=== PATIENT | male | born 1955 ===

== ENCOUNTER 2018-07-03 06:07 | Inpatient (IN) | payer MEDICARE ==
[2018-06-18 11:09] VITALS: BMI 27.2
[2018-07-03 07:08] LABS: BASO # 0.1 K/uL (0.0-0.2); BASO % 0.7 % (0.0-2.0); EOS # 0.2 K/uL (0.0-0.7); EOS % 3.1 % (0.0-4.0); LYMPH # 0.9 K/uL (1.0-4.3); LYMPH % 13.1 % (20.0-40.0); MEAN CELL VOLUME 99.3 fl (80.0-94.0); MEAN CORPUSCULAR HEMOGLOBIN 33.4 pg (27.0-31.0); MEAN CORPUSCULAR HGB CONC 33.6 g/dL (33.0-37.0); MEAN PLATELET VOLUME 8.6 fl (7.2-11.7); MONO # 0.6 K/uL (0.0-0.8); MONO % 8.7 % (0.0-10.0); NEUT # 5.3 K/uL (1.8-7.0); NEUT % 74.4 % (50.0-75.0); NRBC % 0.1 % (0.0-0.0); RBC 3.91 Mil/uL (4.40-5.90); RED CELL DISTRIBUTION WIDTH 12.5 % (11.5-14.5); WHITE BLOOD COUNT 7.2 K/uL (4.8-10.8)
[2018-07-03] MEDS ORDERED: Lactated Ringer's 1,000 ML IV ONE ×2 (07:21→15:45)
[2018-07-03 07:25] LABS: INR 1.1
[2018-07-03 07:27] LABS: PARTIAL THROMBOPLASTIN TIME 32.7 Seconds (25.6-37.1)
--- NOTE | 2018-07-03 07:36 | CP.PCM.HP ---
History of Present Illness - History of Present Illness History of Present Illness: Orthopedic consult/H&P: Dr. Shipley Patient is a 63 y/o male who presents for elective L MIGUELITO. The patient has had chronic left hip pain for the past 3 years which has been resistant to conservative means, with PT and oral medications. The pain has hindered his usual activities such as walking, tieing his shoes, and getting out of seated position. He uses a cane at times to aid in ambulation secondary to his pain. He denies any radiation of pain/numbness/tingling to LE. He also denies CP/SOB/N/V/D/fever/dysuria/melena. He has had history of cardiac stent in 2010. Present on Admission - Present on Admission Any Indicators Present on Admission: No Review of Systems - Review of Systems All systems: reviewed and no additional remarkable complaints except Review of Systems: as per HPI Past Patient History - Infectious Disease Hx of Infectious Diseases: None - Tetanus Immunizations Tetanus Immunization: Unknown - Past Medical History & Family History Past Medical History?: Yes Past Family History: Reviewed and not pertinent - Past Social History Smoking Status: Never Smoked Alcohol: None Drugs: Denies - CARDIAC Hx Cardiac Disorders: Yes Hx Hypercholesterolemia: Yes Hx Hypertension: Yes - PULMONARY Hx Respiratory Disorders: No Hx Asthma: Yes (as a child) - NEUROLOGICAL Hx Neurological Disorder: No - HEENT Hx HEENT Problems: No Hx Glaucoma: Yes (no meds) - RENAL Hx Chronic Kidney Disease: No - ENDOCRINE/METABOLIC Hx Endocrine Disorders: No - HEMATOLOGICAL/ONCOLOGICAL Hx Blood Disorders: No Hx Blood Transfusions: No - INTEGUMENTARY Hx Dermatological Problems: No - MUSCULOSKELETAL/RHEUMATOLOGICAL Hx Musculoskeletal Disorders: Yes Hx Arthritis: (wrist) Hx Back Pain: Yes Hx Fractures: Yes (BILAT ANKLES) Hx Osteoarthritis: Yes Hx Rheumatoid Arthritis: Yes - GASTROINTESTINAL Hx Gastrointestinal Disorders: No - GENITOURINARY/GYNECOLOGICAL Hx Genitourinary Disorders: No Hx Prostate Problems: Yes - PSYCHIATRIC Hx Emotional Abuse: No Hx Physical Abuse: No - SURGICAL HISTORY Hx Surgeries: Yes Hx Cardiac Catheterization: Yes (2010) Hx Coronary Stent: Yes ([address] [facility]) Hx Eye Surgery: Yes (cyst left eye) Hx Orthopedic Surgery: Yes (left shoulder arthroscopy,left foot bunionectomy) Other/Comment: 2011-stent placement - ANESTHESIA Hx Anesthesia: Yes Hx Anesthesia Reactions: No Hx Malignant Hyperthermia: No Has any member of the family had a problem w/ anesthesia?: No Meds Allergies/Adverse Reactions: Allergies Allergy/AdvReac Type Severity Reaction Status Date / Time No Known Allergies Allergy Verified 07/03/18 06:37 Physical Exam - Constitutional Appears: Well, No Acute Distress - Head Exam Head Exam: ATRAUMATIC, NORMOCEPHALIC - Eye Exam Eye Exam: EOMI, Normal appearance, PERRL - ENT Exam ENT Exam: Mucous Membranes Moist - Respiratory Exam Respiratory Exam: NORMAL BREATHING PATTERN - Cardiovascular Exam Cardiovascular Exam: +S1, +S2 - GI/Abdominal Exam GI & Abdominal Exam: Soft. absent: Tenderness - Extremities Exam Additional comments: L hip: no lesions, no masses, no erythema mild groin/lateral hip tenderness sensation intact SP/DP/TN motor intact EHL/FHL/TA/G pedal pulse intact calves soft NT b/l - Neurological Exam Neurological exam: Alert, Oriented x3 Results - Vital Signs Recent Vital Signs: Last Vital Signs Temp 98.2 F 07/03/18 06:53 Pulse 71 07/03/18 07:02 Resp 18 07/03/18 06:53 BP 155/93 H 07/03/18 06:53 Pulse Ox 96 07/03/18 06:53 - Labs Result Diagrams: 07/03/18 07:02 Labs: Laboratory Results - last 24 hr 07/03/18 07/03/18 07/03/18 07:02 07:02 07:02 WBC 7.2 RBC 3.91 L Hgb 13.0 Hct 38.8 MCV 99.3 H MCH 33.4 H MCHC 33.6 RDW 12.5 Plt Count 242 MPV 8.6 Neut % (Auto) 74.4 Lymph % (Auto) 13.1 L [place] % (Auto) 8.7 Eos % (Auto) 3.1 Baso % (Auto) 0.7 Neut # (Auto) 5.3 Lymph # (Auto) 0.9 L [place] # (Auto) 0.6 Eos # (Auto) 0.2 Baso # (Auto) 0.1 PT 13.0 INR 1.1 APTT 32.7 Crossmatch See Detail BBK History Checked Patient has bt Assessment & Plan (1) Osteoarthritis of left hip Assessment and Plan: -OR today for L MIGUELITO with Dr. Quinten -Risks/benefits/alternatives were explained to patient who understands and agrees to proceed with above procedure -NPO -Medical/Cardiac clearance in chart -above d/w Dr. Shipley in agreement Status: Acute
[2018-07-03 07:41] LABS: ALB/GLOB RATIO 1.4 (1.0-2.1); ALBUMIN 4.5 g/dL (3.5-5.0); ALT/SGPT 39 U/L (21-72); AST/SGOT 28 U/L (17-59); BLOOD UREA NITROGEN 11 mg/dl (9-20); CALCIUM 9.5 mg/dL (8.4-10.2); GFR NON-AFRICAN AMERICAN > 60
[2018-07-03] MEDS ORDERED: Sodium Chloride 0.9% 20 ML IV ONE (07:43)
[2018-07-03] MEDS ORDERED: Morphine 1 mg/ml preservative-free Inj(Duramorph) ONE ×2 (07:43→13:21)
[2018-07-03] MEDS ORDERED: EPINEPHrine 1 mg/ml (1:1000) Inj ONE (07:43)
[2018-07-03] MEDS ORDERED: Bupivacaine 0.5% Inj(30mL) ONE (07:43)
[2018-07-03] MEDS ORDERED: Bacitracin Ointment 30 GM TUBE ONE (07:44)
[2018-07-03] MEDS ORDERED: ceFAZolin IV 1 gm in Dextrose 2 GM/100 ML BAG IVPB ONE (07:44)
[2018-07-03] MEDS ORDERED: Propofol 10 mg/ml Inj (20 ML) ONE (13:21)
[2018-07-03] MEDS ORDERED: Lidocaine 4% (Laryng-O-Jet) Kit MM ONE (13:22)
[2018-07-03] MEDS ORDERED: Rocuronium 10 mg/ml (5 ml) ONE (13:22)
[2018-07-03] MEDS ORDERED: Succinylcholine Chloride 20 mg/ml Syr (5 ml) IV ONE ×2 (13:22→16:13)
[2018-07-03] MEDS ORDERED: Midazolam 2 MG/2 ML VIAL ONE (13:23)
[2018-07-03] MEDS ORDERED: Dexamethasone 4 mg/1 ml ONE (15:08)
[2018-07-03] MEDS ORDERED: ePHEDrine 50 mg/ml Inj ONE (15:50)
[2018-07-03] MEDS ORDERED: Neostigmine 1:1000 (1 mg/ml) Inj ONE (16:13)
[2018-07-03] MEDS ORDERED: Sodium Chloride 0.9% Inj (10mL) IV ONE (16:22)
[2018-07-03] MEDS ORDERED: HYDROmorphone 0.5 mg/0.5 ml ISec IVP PRN (16:59)
--- NOTE | 2018-07-03 17:04 | PCM.SURG1 ---
Surgeon's Initial Post Op Note - Surgeon's Notes Surgeon: Jevon Shipley MD Size Maker: Brittani Santoyo PA-C Type of Anesthesia: General Endo Anesthesia Administered By: Dr. Kay Pre-Operative Diagnosis: Left hip DJD Operative Findings: see full note Post-Operative Diagnosis: same Operation Performed: left total hip replacement Specimen/Specimens Removed: femoral head Estimated Blood Loss: EBL {In ML}: 200 Blood Products Given: N/A Drains Used: No Drains Post-Op Condition: Fair Date of Surgery/Procedure: 07/03/18 Time of Surgery/Procedure: 17:03
[2018-07-03] MEDS ORDERED: Bisacodyl 5mg EC Tab PO PRN (17:05)
[2018-07-03] MEDS ORDERED: Oxycodone/Acetaminophen 5/325 mg Tab PO PRN ×2 (17:05→17:14)
[2018-07-03] MEDS ORDERED: Sodium Chloride 0.9% 1,000 ML IV SCH (17:15)
[2018-07-03] MEDS: oxyCODONE 10 mg ER Tab (oxyCONTIN) PO SCH (22:05)
[2018-07-03] MEDS: ceFAZolin 2 GM in Sodium Chloride 0.9% 100 ML IVPB SCH (22:17)
--- NOTE | 2018-07-04 03:39 | OP ---
PROCEDURE DATE: 07/03/2018 PROCEDURE: Total hip replacement. ATTENDING PHYSICIAN: Arslan Shipley MD MODEL AND MOLD MAKER: Hope Angulo PA-C IMPLANTS SIZE: Seferino Accolade II titanium cup 52 mm, Accolade II size 4 stem with high-offset, +8 neck length multi-dual mobility alignment. ESTIMATED BLOOD LOSS: 200 mL. TYPE OF ANESTHESIA: Spinal and general. COMPLICATIONS: None. HISTORY: Patient with long standing history of left hip pain refractory of conservative management. X-ray had shown significant loss of joint space. After the failure of extensive conservative management, I had offered the patient the treatment option of total hip replacement. I reviewed the risk and benefits of the surgery with the patient in detail. The risks include, but not limited to bleeding, infection, nerve vessel damage, continuous pain, blood loss, instability, dislocation, iatrogenic fracture, blood clots, need for further surgery, and even . The patient fully understood the risks and benefits and opted to proceed. Patient underwent necessary preoperative medical workup and once medically cleared, was scheduled for the procedure. DESCRIPTION OF PROCEDURE: On the day of the surgery, the patient was admitted to preoperative holding area. A laterality sheet was completed, confirming correct operative site. An informed consent was signed from the patient and the correct operative hip was marked. Patient was brought into the operating room table. He underwent spinal and general anesthesia. Afterwards, the patient was placed on the operating room table in lateral decubitus position. All the bony prominences were well padded and an axillary roll was also placed. The hip was draped and prepped in the standard sterile manner. Timeout was completed, confirming correct operative site. We proceeded with Navigation assisted total hip replacement. Two pins were placed in the iliac crest to attach the antenna. Additional checkpoint was placed on the greater trochanter and on top of the acetabular roof. We utilized a standard postero-lateral approach. Using a #10 blade, a skin incision was made. The soft tissue dissection was taken down until the IT band fascia was identified incised along it's fibers. The short external rotators were exposed and excised with the capsule. It was tagged wit heavy sutures preserved for a later repair. Afterwards, the hip was dislocated and proposed neck cut was made. The Acetabulum was exposed using standard retractors. The remnant of torn labrum was excised along with pulvinar. The acetabulum was reamed using motorized reamers to the size that provide adequate depth and coverage. Next, size 52 cup was securely fixed in to the acetabular socket in appropriate version and inclination. A polyethylene liner was secured in to the acetabular cup. The femoral canal was exposed using standard retractors. Using the box chisel, lateral femoral neck was removed. Femoral canal was broached up to size 4 broach, which provide a secure fit and adequate fill of femoral canal. A high-offset trial neck was secured onto the broach. Different trial heads with variable neck lengths were secured onto the trial neck. The hip was reduced and taken through extensive range of motion to test stability, soft tissue tensioning and leg length. It was noted the +8 neck length dual mobility liner provide adequate stability, soft tissue tensioning and length. Next, size 4 stem with high-offset was securely fixed into the femoral canal. Then, a +8 neck length MDM head was securely fixed, secured onto the neck of femoral stem. Hip was reduced and taken through final range of motion to assess for stability, soft tissue tensioning and leg length which was found to be satisfactory. Finally, the wound was copiously irrigated using pulse lavage solution. All loose bodies were removed. The short external rotators were repaired to greater trochanter using drill holes and heavy sutures. IT band fascia was tightly closed using heavy sutures and rest the wound was closed standard manner. Sterile dressing was applied. Patient was transferred to stretcher. Post-op instructions included posterior hip precautions. During this procedure, I was assisted by Hope Angulo PA-C, who assisted in positioning the patient on the operating room table as well as transferring the patient from the operating room table to the recovery room stretcher. In addition, Hope Angulo PA-C assisted me during the actual operative procedure by positioning, protecting critical neurovascular structures, exposure of the joint, and proper positioning of the implants. The presence of Hope Angulo PA-C as my operative fitness assistant was medically necessary to ensure the utmost safety of the patient in the pre, intra-, and post-operative periods. Arslan Shipley MD [facility] # [id number]
[2018-07-04] MEDS: ceFAZolin 2 GM in Sodium Chloride 0.9% 100 ML IVPB SCH (06:03)
[2018-07-04 06:56] LABS: HEMOGLOBIN 11.6 g/dL (12.0-18.0); MEAN CELL VOLUME 99.5 fl (80.0-94.0); MEAN CORPUSCULAR HEMOGLOBIN 33.2 pg (27.0-31.0); MEAN CORPUSCULAR HGB CONC 33.3 g/dL (33.0-37.0); RBC 3.48 Mil/uL (4.40-5.90); RED CELL DISTRIBUTION WIDTH 12.7 % (11.5-14.5); WHITE BLOOD COUNT 14.4 K/uL (4.8-10.8)
[2018-07-04 07:09] LABS: BLOOD UREA NITROGEN 19 mg/dl (9-20); CALCIUM 9.3 mg/dL (8.4-10.2); GFR NON-AFRICAN AMERICAN > 60
[2018-07-04] MEDS ORDERED: Influenza Vaccine (5 YR UP)/PF 60 MCG/0.5 ML SYR IM ONE (09:00)
--- NOTE | 2018-07-04 09:27 | RAD ---
Date of service: 07/03/2018 PROCEDURE: HISTORY: pt in pacu s/p THR COMPARISON: 11/10/2017 TECHNIQUE: AP pelvis and frog's leg view. FINDINGS: No fracture or dislocation appreciated. Interval total left hip arthroplasty acetabular and femoral components appear anatomically aligned. Background osteoarthrosis here noted. Right hip osteoarthrosis-similar. Inferior lumbar spondylosis and facet hypertrophic arthrosis. Sacroiliac and pubic symphyseal joints unremarkable. Left gluteal/thigh postsurgical recent changes suggested. IMPRESSION: Recent total left hip arthroplasty-no unexpected findings noted.
--- NOTE | 2018-07-04 10:30 | CP.PCM.PN ---
Subjective - Date & Time of Evaluation Date of Evaluation: 07/04/18 Time of Evaluation: 09:30 - Subjective Subjective: Patient seen and examined at bedside comfortable. No complaints of pain at this time. Has not yet had PT session. No other complaints. Denies CP/SOB/N/fever. Objective - Vital Signs/Intake and Output Vital Signs (last 24 hours): Temp Pulse Resp BP Pulse Ox 98.4 F 64 20 129/74 97 07/04/18 07:48 07/04/18 07:48 07/04/18 07:48 07/04/18 07:48 07/04/18 07:48 - Medications Medications: Current Medications Amlodipine Besylate (Norvasc) 2.5 mg PO DAILY [facility] Aspirin (Ecotrin) 81 mg PO DAILY [facility] Atorvastatin Calcium (Lipitor) 10 mg PO QPM JANES Bisacodyl (Dulcolax) 10 mg PO HS PRN PRN Reason: Constipation Celecoxib (Celebrex) 200 mg PO DAILY [facility] Docusate Sodium (Colace) 100 mg PO BID [facility] Enoxaparin Sodium (Lovenox) 40 mg SC Q24H [facility]; Protocol Hydrochlorothiazide (Microzide) 12.5 mg PO DAILY [facility] Ketorolac Tromethamine (Toradol) 15 mg IVP Q6 [facility] Stop: 07/05/18 16:01 Last Admin: 07/04/18 03:52 Dose: 15 mg Losartan Potassium (Cozaar) 100 mg PO DAILY [facility] Metoprolol Tartrate (Lopressor) 100 mg PO BID [facility] Ondansetron HCl (Zofran Inj) 4 mg IVP Q6 PRN PRN Reason: Nausea/Vomiting Oxycodone HCl (Oxycontin Extended Release Tab) 10 mg PO Q12 [facility] Stop: 07/06/18 21:01 Last Admin: 07/03/18 22:05 Dose: 10 mg Oxycodone/Acetaminophen (Percocet 5/325 Mg Tab) 1 tab PO Q4 PRN PRN Reason: Pain, moderate (4-7) Stop: 07/06/18 17:06 Oxycodone/Acetaminophen (Percocet 5/325 Mg Tab) 2 tab PO Q4 PRN PRN Reason: Pain, severe (8-10) Stop: 07/06/18 17:15 Tamsulosin HCl (Flomax) 0.4 mg PO DAILY [facility] - Labs Labs: 07/04/18 06:00 07/04/18 06:00 PT 13.0 Seconds (9.8-13.1) 07/03/18 07:02 INR 1.1 07/03/18 07:02 APTT 32.7 Seconds (25.6-37.1) 07/03/18 07:02 - Extremities Exam Additional comments: L hip: Dressings CDI sensation intact SP/DP/TN motor intact EHL/FHL/TA/G pedal pulses intact calves soft NT b/l Assessment and Plan (1) Osteoarthritis of left hip Assessment & Plan: POD #1 s/p L MIGUELITO -immediate postop xrays showed questionable lucency of femur likely due to position. Xrays taken today show no lucency with typical postop changes. -PT/OT WBAT -DVT ppx -d/c planning -above d/w Dr. Shipley in agreement Status: Acute
--- NOTE | 2018-07-04 12:45 | RAD ---
Date of service: 07/04/2018 PROCEDURE: Bilateral femurs HISTORY: Post-op COMPARISON: None TECHNIQUE: Standard protocol for this study/examination. FINDINGS: Left femur: Satisfactory postoperative status following MIGUELITO. This includes components of the joint replacement. Air within soft tissues a tests to the recent surgery. Right femur: Degenerative changes right hip joint. No acute osseous, articular soft tissue abnormalities. No significant findings. IMPRESSION: Satisfactory postoperative status.
--- NOTE | 2018-07-04 12:47 | RAD ---
Date of service: 07/04/2018 PROCEDURE: Pelvis and bilateral hips HISTORY: Post-op COMPARISON: July 04, 2018 TECHNIQUE: Standard protocol for this study/examination. FINDINGS: Right hip: There are no osseous abnormalities to suggest fracture. The pelvic ring is intact. Preserved femoral-acetabular relationship. Negative study for protrusio, subluxation or dislocation. Degenerative changes: Mild. Left hip: Satisfactory postoperative status recent MIGUELITO. IMPRESSION: Satisfactory postoperative status left hip. Mild degenerative changes right hip.
[2018-07-04] MEDS: oxyCODONE 10 mg ER Tab (oxyCONTIN) PO SCH ×2 (13:32→20:48)
[2018-07-04] MEDS: Cholecalciferol 1,000 INTLU TAB PO SCH (15:44)
[2018-07-04] MEDS: Enoxaparin 40 mg Syringe SC SCH (16:29)
[2018-07-05 06:07] LABS: HEMOGLOBIN 11.8 g/dL (12.0-18.0); MEAN CORPUSCULAR HEMOGLOBIN 33.7 pg (27.0-31.0); RBC 3.51 Mil/uL (4.40-5.90); RED CELL DISTRIBUTION WIDTH 12.7 % (11.5-14.5); WHITE BLOOD COUNT 12.3 K/uL (4.8-10.8)
[2018-07-05 06:17] LABS: BLOOD UREA NITROGEN 34 mg/dl (9-20); CALCIUM 9.5 mg/dL (8.4-10.2); GFR NON-AFRICAN AMERICAN > 60
[2018-07-05 07:41] VITALS: RESP 18
[2018-07-05] MEDS: oxyCODONE 10 mg ER Tab (oxyCONTIN) PO SCH (10:06)
[2018-07-05] MEDS: Cholecalciferol 1,000 INTLU TAB PO SCH (10:08)
--- NOTE | 2018-07-05 12:51 | CP.PCM.PN ---
Subjective - Date & Time of Evaluation Date of Evaluation: 07/05/18 Time of Evaluation: 12:49 - Subjective Subjective: Patient states he is feeling a little better. Still with pain but controlled with medication. Denies CP/SOB/dizziness. Denies numbness/tingling. Objective - Vital Signs/Intake and Output Vital Signs (last 24 hours): Temp Pulse Resp BP Pulse Ox 98.1 F 93 H 18 102/64 96 07/05/18 07:40 07/05/18 10:08 07/05/18 07:40 07/05/18 10:08 07/05/18 09:35 - Medications Medications: Current Medications Amlodipine Besylate (Norvasc) 2.5 mg PO DAILY [facility] Last Admin: 07/05/18 10:07 Dose: 2.5 mg Aspirin (Ecotrin) 81 mg PO DAILY [facility] Last Admin: 07/05/18 10:07 Dose: 81 mg Atorvastatin Calcium (Lipitor) 10 mg PO QPM [facility] Last Admin: 07/04/18 18:34 Dose: 10 mg Bisacodyl (Dulcolax) 10 mg PO HS PRN PRN Reason: Constipation Celecoxib (Celebrex) 200 mg PO DAILY [facility] Last Admin: 07/05/18 09:57 Dose: 200 mg Cholecalciferol (Vitamin D) 1,000 intlu PO DAILY [facility] Last Admin: 07/05/18 10:08 Dose: 1,000 intlu Docusate Sodium (Colace) 100 mg PO BID [facility] Last Admin: 07/05/18 09:53 Dose: 100 mg Enoxaparin Sodium (Lovenox) 40 mg SC Q24H [facility]; Protocol Last Admin: 07/04/18 16:29 Dose: 40 mg Hydrochlorothiazide (Microzide) 12.5 mg PO DAILY [facility] Last Admin: 07/05/18 09:53 Dose: 12.5 mg Sodium Chloride (Sodium Chloride 0.9%) 1,000 mls @ 100 mls/hr IV .Q10H [facility] Stop: 07/05/18 22:59 Ketorolac Tromethamine (Toradol) 15 mg IVP Q6 [facility] Stop: 07/05/18 16:01 Last Admin: 07/05/18 10:21 Dose: 15 mg Losartan Potassium (Cozaar) 100 mg PO DAILY [facility] Last Admin: 07/05/18 09:53 Dose: 100 mg Metoprolol Tartrate (Lopressor) 100 mg PO BID [facility] Last Admin: 07/05/18 10:08 Dose: 100 mg Ondansetron HCl (Zofran Inj) 4 mg IVP Q6 PRN PRN Reason: Nausea/Vomiting Oxycodone HCl (Oxycontin Extended Release Tab) 10 mg PO Q12 [facility] Stop: 07/06/18 21:01 Last Admin: 07/05/18 10:06 Dose: 10 mg Oxycodone/Acetaminophen (Percocet 5/325 Mg Tab) 1 tab PO Q4 PRN PRN Reason: Pain, moderate (4-7) Stop: 07/06/18 17:06 Oxycodone/Acetaminophen (Percocet 5/325 Mg Tab) 2 tab PO Q4 PRN PRN Reason: Pain, severe (8-10) Stop: 07/06/18 17:15 Tamsulosin HCl (Flomax) 0.4 mg PO DAILY [facility] Last Admin: 07/05/18 09:52 Dose: 0.4 mg - Labs Labs: 07/05/18 05:30 07/05/18 05:30 PT 13.0 Seconds (9.8-13.1) 07/03/18 07:02 INR 1.1 07/03/18 07:02 APTT 32.7 Seconds (25.6-37.1) 07/03/18 07:02 - Extremities Exam Additional comments: left hip: dressing changed. +ROM ankle/toes, sensation intact, +DP/PT Pulses calves soft NT neg homans, incision intact, dry no erythema Assessment and Plan (1) Osteoarthritis of left hip Assessment & Plan: POD#2 s/p THR ortho stable for d/c to rehab cont lovenox for VTE proph cont Vit D VTE proph PT/OT hip precautions d/w Dr. Shipley, agrees with above Status: Acute (2) Acute blood loss anemia Assessment & Plan: stable Status: Acute (3) Vitamin D deficiency Status: Acute
[2018-07-05] MEDS ORDERED: Sodium Chloride 0.9% 1,000 ML IV SCH (13:00)
[2018-07-05 16:31] VITALS: BP 112/69; PULSE 73; TEMP 97.7; O2SAT 94
[2018-07-05] MEDS: Enoxaparin 40 mg Syringe SC SCH (17:27)
== END 2018-07-05 17:30 | DRG 470 ==
LOC: H.OPSURG 06:07 → H.MEDSURG1 17:05
PROVIDERS: ADMIT Family Medicine; ATTEND Family Medicine
PROC: 8E0YXBZ Computer Assisted Procedure of Lower Extremity (ICD-10-PCS; 2018-07-03)
PROC: 0SRB0JA Replacement of Left Hip Joint with Synthetic Substitute, Uncemented, Open Approach (ICD-10-PCS; principal; 2018-07-03 10:15)
PROC: 3E02340 Introduction of Influenza Vaccine into Muscle, Percutaneous Approach (ICD-10-PCS; 2018-07-04)
DX: M16.12 Unilateral primary osteoarthritis, left hip (principal); D62 Acute posthemorrhagic anemia; E55.9 Vitamin D deficiency, unspecified; E78.00 Pure hypercholesterolemia, unspecified; I10 Essential (primary) hypertension; M06.9 Rheumatoid arthritis, unspecified; Z95.5 Presence of coronary angioplasty implant and graft; Z23 Encounter for immunization

== ENCOUNTER 2018-07-05 14:07 | Inpatient (IN) | payer MEDICARE ==
[2018-07-05 17:42] VITALS: BMI 27.9
[2018-07-05] MEDS ORDERED: Oxycodone/Acetaminophen 5/325 mg Tab PO PRN ×2 (18:59)
[2018-07-05] MEDS ORDERED: Enoxaparin 40 mg Syringe SC SCH (19:00)
[2018-07-05 19:57] VITALS: RESP 20
[2018-07-05] MEDS ORDERED: Bisacodyl 5mg EC Tab PO PRN (20:24)
[2018-07-05] MEDS: oxyCODONE 10 mg ER Tab (oxyCONTIN) PO SCH (21:19)
--- NOTE | 2018-07-06 08:34 | CP.PCM.HP ---
<Nona Pennington - Last Filed: 07/06/18 14:03> History of Present Illness - History of Present Illness History of Present Illness: HPI: 63 YO Male with PMHx of CAD, Dyslipidemia, HTN and DJD was admitted to [facility] for severe L hip pain. While admitted pt underwent left total hip replacement, currently POD 3. Pt is doing well, pain is well tolerated with pain meds. Pt was transferred to TCU for further physical therapy and rehab. PMHx: CAD, Dyslipidemia, HTN and DJD/OA SurgHx: PCI w/ stent, L rotator cuff repair, eye surgery SHx: denies ETOH, smoking and illicit drug use FHx: Hx of HTN and TN in mother Allergies: NKDA Present on Admission - Present on Admission Any Indicators Present on Admission: No Review of Systems - Constitutional Constitutional: absent: Chills, Fever - Cardiovascular Cardiovascular: absent: Chest Pain, Dyspnea, Palpitations - Respiratory Respiratory: absent: Cough, Dyspnea - Gastrointestinal Gastrointestinal: absent: Abdominal Pain Past Patient History - Infectious Disease Hx of Infectious Diseases: None - Tetanus Immunizations Tetanus Immunization: Unknown - Past Medical History & Family History Past Medical History?: Yes - Past Social History Smoking Status: Never Smoked Alcohol: None Drugs: Denies - CARDIAC Hx Cardiac Disorders: Yes Hx Hypercholesterolemia: Yes Hx Hypertension: Yes - PULMONARY Hx Respiratory Disorders: No Hx Asthma: Yes (as a child) - NEUROLOGICAL Hx Neurological Disorder: No - HEENT Hx HEENT Problems: No Hx Glaucoma: Yes - RENAL Hx Chronic Kidney Disease: No - ENDOCRINE/METABOLIC Hx Endocrine Disorders: No - HEMATOLOGICAL/ONCOLOGICAL Hx Blood Disorders: No Hx Blood Transfusions: No - INTEGUMENTARY Hx Dermatological Problems: No - MUSCULOSKELETAL/RHEUMATOLOGICAL Hx Falls: No - GASTROINTESTINAL Hx Gastrointestinal Disorders: No - GENITOURINARY/GYNECOLOGICAL Hx Genitourinary Disorders: No Hx Prostate Problems: Yes - PSYCHIATRIC Hx Substance Use: No - SURGICAL HISTORY Hx Surgeries: Yes Hx Cardiac Catheterization: Yes (2010) Hx Coronary Stent: Yes (2010) Hx Eye Surgery: Yes (cyst left eye) Hx Orthopedic Surgery: Yes (left shoulder arthroscopy,left foot bunionectomy) Other/Comment: 2010-stent placement - ANESTHESIA Hx Anesthesia: Yes Hx Anesthesia Reactions: No Hx Malignant Hyperthermia: No Meds Allergies/Adverse Reactions: Allergies Allergy/AdvReac Type Severity Reaction Status Date / Time No Known Allergies Allergy Verified 07/05/18 17:42 Physical Exam - Constitutional Appears: No Acute Distress, Other (seen working with PT) - Head Exam Head Exam: NORMAL INSPECTION - Eye Exam Eye Exam: Normal appearance - ENT Exam ENT Exam: Mucous Membranes Moist - Respiratory Exam Respiratory Exam: Clear to Auscultation Bilateral, NORMAL BREATHING PATTERN. absent: Wheezes - Cardiovascular Exam Cardiovascular Exam: +S1, +S2 - GI/Abdominal Exam GI & Abdominal Exam: Normal Bowel Sounds, Soft. absent: Tenderness - Extremities Exam Additional comments: surgical site is clean, intact, no erythema noted pt is working with PT, ambulating with a walker - Neurological Exam Neurological exam: Alert, Oriented x3 Results - Vital Signs Recent Vital Signs: Last Vital Signs Temp 98.8 F 07/05/18 22:00 Pulse 61 07/05/18 22:00 Resp 20 07/05/18 22:00 BP 123/71 07/05/18 22:00 Pulse Ox 92 L 07/05/18 22:00 Assessment & Plan (1) Osteoarthritis of left hip Status: Chronic (2) HTN (hypertension) Status: Chronic - Assessment and Plan (Free Text) Assessment: Assessment/Plan: 63 YO Male with PMHx of CAD, Dyslipidemia, HTN and DJD is admitted for PT/OT and rehab. DJD/OA -s/p L total hip replacement, POD 3 -pain management -PT/OT -ortho on board HTN/HLD -chronic -c/w home meds DVT prolx: Lovenox SX Plan as ordered <Kunal Cruz - Last Filed: 07/09/18 09:33> Results - Vital Signs Recent Vital Signs: Last Vital Signs Temp 98.4 F 07/09/18 08:18 Pulse 78 07/09/18 08:53 Resp 20 07/09/18 08:18 BP 131/78 07/09/18 08:53 Pulse Ox 99 07/09/18 08:18 - Labs Result Diagrams: 07/08/18 05:50 07/08/18 05:50 Assessment & Plan - Assessment and Plan (Free Text) Plan: I was present during the evaluation and discussed with Dr Pennington re plans of care and mgt. Kunal Cruz M.D.
[2018-07-06] MEDS: Enoxaparin 40 mg Syringe SC SCH (09:05)
[2018-07-06] MEDS: Cholecalciferol 1,000 INTLU TAB PO SCH (09:06)
[2018-07-06] MEDS: oxyCODONE 10 mg ER Tab (oxyCONTIN) PO SCH ×2 (09:12→21:42)
--- NOTE | 2018-07-06 15:06 | CP.PCM.CON ---
History of Present Illness - History of Present Illness History of Present Illness: Dr Marx PMR consultation on Thiago Fields, born 1955 who has been admitted to [address] TCU for CHEKO following an elective left THR by Dr Shipley. Post op doing very well with minimal pain. Only issue is constipation. He is on softeners but no satisfactory result yet. Review of Systems - Constitutional Constitutional: absent: Anorexia, Chills - EENT Eyes: Blurred Vision. absent: Change in Vision Ears: absent: Decreased Hearing, Ear Discharge, Ear Pain Nose/Mouth/Throat: absent: Nasal Congestion, Nasal Discharge - Cardiovascular Cardiovascular: absent: Chest Pain, Chest Pain with Activity - Respiratory Respiratory: absent: Dyspnea, Hemoptysis - Gastrointestinal Gastrointestinal: Constipation - Musculoskeletal Musculoskeletal: absent: Back Pain, Numbness - Integumentary Integumentary: absent: Bleeding Lesions - Neurological Neurological: absent: Abnormal Movements, Convulsions, Numbness, Lack of Coordination, Radicular Pain, Vertigo - Psychiatric Psychiatric: absent: Anxiety Past Patient History - Infectious Disease Hx of Infectious Diseases: None - Tetanus Immunizations Tetanus Immunization: Unknown - Past Medical History & Family History Past Medical History?: Yes - Past Social History Smoking Status: Never Smoked Alcohol: None Drugs: Denies Home Situation {Lives}: With Family (elevator. used a cane at times) - CARDIAC Hx Cardiac Disorders: Yes Hx Hypercholesterolemia: Yes Hx Hypertension: Yes - PULMONARY Hx Respiratory Disorders: No Hx Asthma: Yes (as a child) - NEUROLOGICAL Hx Neurological Disorder: No - HEENT Hx HEENT Problems: No Hx Glaucoma: Yes - RENAL Hx Chronic Kidney Disease: No - ENDOCRINE/METABOLIC Hx Endocrine Disorders: No - HEMATOLOGICAL/ONCOLOGICAL Hx Blood Disorders: No Hx Blood Transfusions: No - INTEGUMENTARY Hx Dermatological Problems: No - MUSCULOSKELETAL/RHEUMATOLOGICAL Hx Falls: No - GASTROINTESTINAL Hx Gastrointestinal Disorders: No - GENITOURINARY/GYNECOLOGICAL Hx Genitourinary Disorders: No Hx Prostate Problems: Yes - PSYCHIATRIC Hx Substance Use: No - SURGICAL HISTORY Hx Surgeries: Yes Hx Cardiac Catheterization: Yes (2010) Hx Coronary Stent: Yes (2010) Hx Eye Surgery: Yes (cyst left eye) Hx Orthopedic Surgery: Yes (left shoulder arthroscopy,left foot bunionectomy) Other/Comment: 2011-stent placement - ANESTHESIA Hx Anesthesia: Yes Hx Anesthesia Reactions: No Hx Malignant Hyperthermia: No Meds Allergies/Adverse Reactions: Allergies Allergy/AdvReac Type Severity Reaction Status Date / Time No Known Allergies Allergy Verified 07/05/18 17:42 - Medications Medications: Current Medications Amlodipine Besylate (Norvasc) 2.5 mg PO DAILY [facility] Last Admin: 07/06/18 09:08 Dose: 2.5 mg Aspirin (Ecotrin) 81 mg PO DAILY [facility] Last Admin: 07/06/18 09:08 Dose: 81 mg Atorvastatin Calcium (Lipitor) 10 mg PO HS [facility] Last Admin: 07/05/18 22:30 Dose: 10 mg Bisacodyl (Dulcolax) 10 mg PO DAILY PRN PRN Reason: Constipation Celecoxib (Celebrex) 200 mg PO DAILY [facility] Last Admin: 07/06/18 09:06 Dose: 200 mg Chlorpromazine (Thorazine) 50 mg PO Q8 PRN PRN Reason: Hiccups Cholecalciferol (Vitamin D) 1,000 intlu PO DAILY [facility] Last Admin: 07/06/18 09:06 Dose: 1,000 intlu Docusate Sodium (Colace) 100 mg PO BID [facility] Last Admin: 07/06/18 09:06 Dose: 100 mg Enoxaparin Sodium (Lovenox) 40 mg SC DAILY [facility]; Protocol Last Admin: 07/06/18 09:05 Dose: 40 mg Hydrochlorothiazide (Microzide) 12.5 mg PO DAILY [facility] Last Admin: 07/06/18 09:06 Dose: 12.5 mg Lactulose (Enulose) 20 gm PO DAILY PRN PRN Reason: Constipation Losartan Potassium (Cozaar) 100 mg PO DAILY [facility] Last Admin: 07/06/18 09:05 Dose: 100 mg Metoprolol Tartrate (Lopressor) 100 mg PO BID [facility] Last Admin: 07/06/18 09:06 Dose: 100 mg Ondansetron HCl (Zofran Inj) 4 mg IVP Q6 PRN PRN Reason: Nausea/Vomiting Oxycodone HCl (Oxycontin Extended Release Tab) 10 mg PO Q12 [facility] Stop: 07/08/18 21:01 Last Admin: 07/06/18 09:12 Dose: 10 mg Oxycodone/Acetaminophen (Percocet 5/325 Mg Tab) 1 tab PO Q4 PRN PRN Reason: Pain, moderate (4-7) Stop: 07/08/18 19:00 Oxycodone/Acetaminophen (Percocet 5/325 Mg Tab) 2 tab PO Q4 PRN PRN Reason: Pain, severe (8-10) Stop: 07/08/18 19:00 Tamsulosin HCl (Flomax) 0.4 mg PO DAILY [facility] Last Admin: 07/06/18 09:07 Dose: 0.4 mg Physical Exam - Constitutional Appears: Non-toxic, No Acute Distress - Head Exam Head Exam: ATRAUMATIC, NORMAL INSPECTION, NORMOCEPHALIC - Eye Exam Eye Exam: EOMI - ENT Exam ENT Exam: Mucous Membranes Moist - Respiratory Exam Respiratory Exam: NORMAL BREATHING PATTERN - Cardiovascular Exam Cardiovascular Exam: REGULAR RHYTHM - GI/Abdominal Exam GI & Abdominal Exam: absent: Distended - Extremities Exam Extremities exam: Positive for: pedal edema (mild, left). Negative for: calf tenderness - Neurological Exam Neurological exam: Alert, CN II-XII Intact, Oriented x3 - Psychiatric Exam Psychiatric exam: Normal Affect, Normal Mood - Skin Skin Exam: Warm Results - Vital Signs Recent Vital Signs: Last Vital Signs Temp 98.7 F 07/06/18 11:32 Pulse 68 07/06/18 12:50 Resp 20 07/06/18 11:32 BP 128/73 07/06/18 11:32 Pulse Ox 96 07/06/18 12:50 Assessment & Plan - Assessment and Plan (Free Text) Assessment: 63 year old male s/p left THR POD #4 making great gains PT/OT to continue to help increase functional independence Pain: controlled Vascular: no evidence of DVT, on LMWH prophylaxis GI: + constipation, added Lactulose Patient continues to be an excellent TCU rehabilitation candidate and will have continued focused PT, OT and recreational therapy to help facilitate a safe and appropriate d/c plan
[2018-07-07] MEDS: Enoxaparin 40 mg Syringe SC SCH (08:47)
[2018-07-07] MEDS: Cholecalciferol 1,000 INTLU TAB PO SCH (08:48)
[2018-07-07] MEDS: oxyCODONE 10 mg ER Tab (oxyCONTIN) PO SCH ×2 (08:48→22:53)
[2018-07-08 07:04] LABS: HEMOGLOBIN 10.4 g/dL (12.0-18.0); MEAN CELL VOLUME 99.4 fl (80.0-94.0); MEAN CORPUSCULAR HGB CONC 33.2 g/dL (33.0-37.0); RBC 3.17 Mil/uL (4.40-5.90); RED CELL DISTRIBUTION WIDTH 12.7 % (11.5-14.5); WHITE BLOOD COUNT 7.7 K/uL (4.8-10.8)
[2018-07-08 07:08] LABS: INR 1.2; PROTHROMBIN TIME 13.3 Seconds (9.8-13.1)
[2018-07-08 07:39] LABS: ALB/GLOB RATIO 1.1 (1.0-2.1); ALBUMIN 3.9 g/dL (3.5-5.0); ALT/SGPT 38 U/L (21-72); AST/SGOT 42 U/L (17-59); BLOOD UREA NITROGEN 25 mg/dl (9-20); CALCIUM 9.5 mg/dL (8.4-10.2); GFR NON-AFRICAN AMERICAN > 60
[2018-07-08] MEDS: Enoxaparin 40 mg Syringe SC SCH (08:51)
[2018-07-08] MEDS: Cholecalciferol 1,000 INTLU TAB PO SCH (08:52)
[2018-07-08] MEDS: oxyCODONE 10 mg ER Tab (oxyCONTIN) PO SCH ×2 (10:05→21:05)
--- NOTE | 2018-07-08 12:27 | CP.PCM.PN ---
Subjective - Date & Time of Evaluation Date of Evaluation: 07/08/18 Time of Evaluation: 12:27 - Subjective Subjective: patient seen and examined at bedside. no complaints offered at this time tolerating po well pain well controlled available diagnostic data reviewed. Objective - Vital Signs/Intake and Output Vital Signs (last 24 hours): Temp Pulse Resp BP Pulse Ox 98.5 F 82 20 116/75 98 07/08/18 08:26 07/08/18 08:51 07/08/18 08:26 07/08/18 08:51 07/08/18 08:26 - Medications Medications: Current Medications Amlodipine Besylate (Norvasc) 2.5 mg PO DAILY [facility] Last Admin: 07/08/18 08:51 Dose: 2.5 mg Aspirin (Ecotrin) 81 mg PO DAILY [facility] Last Admin: 07/08/18 08:51 Dose: 81 mg Atorvastatin Calcium (Lipitor) 10 mg PO HS [facility] Last Admin: 07/07/18 22:53 Dose: 10 mg Bisacodyl (Dulcolax) 10 mg PO DAILY PRN PRN Reason: Constipation Celecoxib (Celebrex) 200 mg PO DAILY [facility] Last Admin: 07/08/18 08:50 Dose: 200 mg Chlorpromazine (Thorazine) 50 mg PO Q8 PRN PRN Reason: Hiccups Cholecalciferol (Vitamin D) 1,000 intlu PO DAILY [facility] Last Admin: 07/08/18 08:52 Dose: 1,000 intlu Docusate Sodium (Colace) 100 mg PO BID [facility] Last Admin: 07/08/18 08:50 Dose: 100 mg Enoxaparin Sodium (Lovenox) 40 mg SC DAILY [facility]; Protocol Last Admin: 07/08/18 08:51 Dose: 40 mg Hydrochlorothiazide (Microzide) 12.5 mg PO DAILY [facility] Last Admin: 07/08/18 08:51 Dose: 12.5 mg Lactulose (Enulose) 20 gm PO DAILY PRN PRN Reason: Constipation Losartan Potassium (Cozaar) 100 mg PO DAILY [facility] Last Admin: 07/08/18 08:50 Dose: 100 mg Metoprolol Tartrate (Lopressor) 100 mg PO BID [facility] Last Admin: 07/08/18 08:51 Dose: 100 mg Ondansetron HCl (Zofran Inj) 4 mg IVP Q6 PRN PRN Reason: Nausea/Vomiting Oxycodone HCl (Oxycontin Extended Release Tab) 10 mg PO Q12 [facility] Stop: 07/08/18 21:01 Last Admin: 07/08/18 10:05 Dose: 10 mg Oxycodone/Acetaminophen (Percocet 5/325 Mg Tab) 1 tab PO Q4 PRN PRN Reason: Pain, moderate (4-7) Stop: 07/08/18 19:00 Last Admin: 07/07/18 17:38 Dose: 1 tab Oxycodone/Acetaminophen (Percocet 5/325 Mg Tab) 2 tab PO Q4 PRN PRN Reason: Pain, severe (8-10) Stop: 07/08/18 19:00 Last Admin: 07/08/18 08:43 Dose: 2 tab Tamsulosin HCl (Flomax) 0.4 mg PO DAILY [facility] Last Admin: 07/08/18 08:51 Dose: 0.4 mg - Labs Labs: 07/08/18 05:50 07/08/18 05:50 PT 13.3 Seconds (9.8-13.1) H 07/08/18 05:50 INR 1.2 07/08/18 05:50 - Constitutional Appears: Non-toxic, No Acute Distress - Head Exam Head Exam: NORMAL INSPECTION - Eye Exam Eye Exam: Normal appearance - Respiratory Exam Respiratory Exam: NORMAL BREATHING PATTERN - Cardiovascular Exam Cardiovascular Exam: +S1, +S2 - GI/Abdominal Exam GI & Abdominal Exam: Soft - Neurological Exam Neurological Exam: Alert, Awake - Psychiatric Exam Psychiatric exam: Normal Affect, Normal Mood - Skin Skin Exam: Normal Color, Warm Assessment and Plan - Assessment and Plan (Free Text) Assessment: 63 YO Male with PMHx of CAD, Dyslipidemia, HTN and DJD is admitted for L THR PT/OT and rehab. DJD/OA -s/p L total hip replacement -pain management -PT/OT -ortho on board HTN/HLD -chronic -c/w home meds DVT prolx: Lovenox SX Plan as ordered
[2018-07-08] MEDS ORDERED: Oxycodone/Acetaminophen 5/325 mg Tab PO PRN (13:29)
[2018-07-09] MEDS: Enoxaparin 40 mg Syringe SC SCH (08:52)
[2018-07-09] MEDS: Cholecalciferol 1,000 INTLU TAB PO SCH (08:53)
[2018-07-09] MEDS: oxyCODONE 10 mg ER Tab (oxyCONTIN) PO SCH ×2 (08:55→21:59)
--- NOTE | 2018-07-09 09:39 | CP.PCM.PN ---
Subjective - Date & Time of Evaluation Date of Evaluation: 07/07/18 Time of Evaluation: 11:00 - Subjective Subjective: Patient is doing a lot better Has minimal pain Has no fever Hgb is stable Doing well with PT Has good bm. Objective - Vital Signs/Intake and Output Vital Signs (last 24 hours): Temp Pulse Resp BP Pulse Ox 98.4 F 78 20 131/78 99 07/09/18 08:18 07/09/18 08:53 07/09/18 08:18 07/09/18 08:53 07/09/18 08:18 - Medications Medications: Current Medications Amlodipine Besylate (Norvasc) 2.5 mg PO DAILY [facility] Last Admin: 07/09/18 08:53 Dose: 2.5 mg Aspirin (Ecotrin) 81 mg PO DAILY [facility] Last Admin: 07/09/18 08:52 Dose: 81 mg Atorvastatin Calcium (Lipitor) 10 mg PO HS [facility] Last Admin: 07/08/18 21:05 Dose: 10 mg Bisacodyl (Dulcolax) 10 mg PO DAILY PRN PRN Reason: Constipation Celecoxib (Celebrex) 200 mg PO DAILY [facility] Last Admin: 07/09/18 08:51 Dose: 200 mg Chlorpromazine (Thorazine) 50 mg PO Q8 PRN PRN Reason: Hiccups Cholecalciferol (Vitamin D) 1,000 intlu PO DAILY [facility] Last Admin: 07/09/18 08:53 Dose: 1,000 intlu Docusate Sodium (Colace) 100 mg PO BID [facility] Last Admin: 07/09/18 08:51 Dose: 100 mg Enoxaparin Sodium (Lovenox) 40 mg SC DAILY [facility]; Protocol Last Admin: 07/09/18 08:52 Dose: 40 mg Hydrochlorothiazide (Microzide) 12.5 mg PO DAILY [facility] Last Admin: 07/09/18 08:53 Dose: 12.5 mg Lactulose (Enulose) 20 gm PO DAILY PRN PRN Reason: Constipation Losartan Potassium (Cozaar) 100 mg PO DAILY [facility] Last Admin: 07/09/18 08:51 Dose: 100 mg Metoprolol Tartrate (Lopressor) 100 mg PO BID [facility] Last Admin: 07/09/18 08:52 Dose: 100 mg Ondansetron HCl (Zofran Inj) 4 mg IVP Q6 PRN PRN Reason: Nausea/Vomiting Oxycodone HCl (Oxycontin Extended Release Tab) 10 mg PO Q12 [facility] Stop: 07/11/18 21:01 Last Admin: 07/09/18 08:55 Dose: 10 mg Oxycodone/Acetaminophen (Percocet 5/325 Mg Tab) 1 tab PO Q4 PRN PRN Reason: Pain, moderate (4-7) Stop: 07/11/18 13:30 Oxycodone/Acetaminophen (Percocet 5/325 Mg Tab) 2 tab PO Q4 PRN PRN Reason: Pain, severe (8-10) Stop: 07/11/18 13:30 Tamsulosin HCl (Flomax) 0.4 mg PO DAILY [facility] Last Admin: 07/09/18 08:52 Dose: 0.4 mg - Labs Labs: 07/08/18 05:50 07/08/18 05:50 PT 13.3 Seconds (9.8-13.1) H 07/08/18 05:50 INR 1.2 07/08/18 05:50 - Head Exam Head Exam: NORMAL INSPECTION - Eye Exam Eye Exam: Normal appearance - ENT Exam ENT Exam: Mucous Membranes Moist - Respiratory Exam Respiratory Exam: Clear to Ausculation Bilateral - Cardiovascular Exam Cardiovascular Exam: REGULAR RHYTHM - GI/Abdominal Exam GI & Abdominal Exam: Normal Bowel Sounds Assessment and Plan (1) CAD (coronary artery disease) Status: Acute (2) Status post total hip replacement, left Status: Acute (3) HTN (hypertension) Status: Chronic - Assessment and Plan (Free Text) Plan: Cont meds Cont tx Cont pain meds Cont PT
--- NOTE | 2018-07-09 10:19 | CP.PCM.PN ---
Subjective - Date & Time of Evaluation Date of Evaluation: 07/09/18 Time of Evaluation: 07:30 - Subjective Subjective: Patient seen and examined at OOB to chair comfortable. Pain controlled. Tolerating PT well. No new complaints. Objective - Vital Signs/Intake and Output Vital Signs (last 24 hours): Temp Pulse Resp BP Pulse Ox 98.4 F 78 20 131/78 99 07/09/18 08:18 07/09/18 08:53 07/09/18 08:18 07/09/18 08:53 07/09/18 08:18 - Medications Medications: Current Medications Amlodipine Besylate (Norvasc) 2.5 mg PO DAILY [facility] Last Admin: 07/09/18 08:53 Dose: 2.5 mg Aspirin (Ecotrin) 81 mg PO DAILY [facility] Last Admin: 07/09/18 08:52 Dose: 81 mg Atorvastatin Calcium (Lipitor) 10 mg PO HS [facility] Last Admin: 07/08/18 21:05 Dose: 10 mg Bisacodyl (Dulcolax) 10 mg PO DAILY PRN PRN Reason: Constipation Celecoxib (Celebrex) 200 mg PO DAILY [facility] Last Admin: 07/09/18 08:51 Dose: 200 mg Chlorpromazine (Thorazine) 50 mg PO Q8 PRN PRN Reason: Hiccups Cholecalciferol (Vitamin D) 1,000 intlu PO DAILY [facility] Last Admin: 07/09/18 08:53 Dose: 1,000 intlu Docusate Sodium (Colace) 100 mg PO BID [facility] Last Admin: 07/09/18 08:51 Dose: 100 mg Enoxaparin Sodium (Lovenox) 40 mg SC DAILY [facility]; Protocol Last Admin: 07/09/18 08:52 Dose: 40 mg Hydrochlorothiazide (Microzide) 12.5 mg PO DAILY [facility] Last Admin: 07/09/18 08:53 Dose: 12.5 mg Lactulose (Enulose) 20 gm PO DAILY PRN PRN Reason: Constipation Losartan Potassium (Cozaar) 100 mg PO DAILY [facility] Last Admin: 07/09/18 08:51 Dose: 100 mg Metoprolol Tartrate (Lopressor) 100 mg PO BID [facility] Last Admin: 07/09/18 08:52 Dose: 100 mg Ondansetron HCl (Zofran Inj) 4 mg IVP Q6 PRN PRN Reason: Nausea/Vomiting Oxycodone HCl (Oxycontin Extended Release Tab) 10 mg PO Q12 [facility] Stop: 07/11/18 21:01 Last Admin: 07/09/18 08:55 Dose: 10 mg Oxycodone/Acetaminophen (Percocet 5/325 Mg Tab) 1 tab PO Q4 PRN PRN Reason: Pain, moderate (4-7) Stop: 07/11/18 13:30 Oxycodone/Acetaminophen (Percocet 5/325 Mg Tab) 2 tab PO Q4 PRN PRN Reason: Pain, severe (8-10) Stop: 07/11/18 13:30 Tamsulosin HCl (Flomax) 0.4 mg PO DAILY [facility] Last Admin: 07/09/18 08:52 Dose: 0.4 mg - Labs Labs: 07/08/18 05:50 07/08/18 05:50 PT 13.3 Seconds (9.8-13.1) H 07/08/18 05:50 INR 1.2 07/08/18 05:50 - Extremities Exam Additional comments: L hip: Dress[place] CDI sensation intact SP/DP/TN motor intact EHL/FHL/TA/G pedal pulses intact calves soft NT b/l Assessment and Plan (1) Status post total hip replacement, left Assessment & Plan: POD #6 s/p L MIGUELITO -PT/OT WBAT -DVT ppx -orthopedically stable -above d/w Dr. Shipley in agreement Status: Acute
[2018-07-09] MEDS: Oxycodone/Acetaminophen 5/325 mg Tab PO PRN (17:53)
--- NOTE | 2018-07-09 18:02 | CP.PCM.PN ---
Subjective - Date & Time of Evaluation Date of Evaluation: 07/09/18 Time of Evaluation: 18:01 - Subjective Subjective: Patient seen in the room no leg swelling already ambulating with a cane. denies sob/cp or constipation making great gains continue current care Objective - Vital Signs/Intake and Output Vital Signs (last 24 hours): Temp Pulse Resp BP Pulse Ox 98.5 F 74 20 128/74 99 07/09/18 16:35 07/09/18 17:54 07/09/18 16:35 07/09/18 17:54 07/09/18 16:35 - Medications Medications: Current Medications Amlodipine Besylate (Norvasc) 2.5 mg PO DAILY [facility] Last Admin: 07/09/18 08:53 Dose: 2.5 mg Aspirin (Ecotrin) 81 mg PO DAILY [facility] Last Admin: 07/09/18 08:52 Dose: 81 mg Atorvastatin Calcium (Lipitor) 10 mg PO HS [facility] Last Admin: 07/08/18 21:05 Dose: 10 mg Bisacodyl (Dulcolax) 10 mg PO DAILY PRN PRN Reason: Constipation Celecoxib (Celebrex) 200 mg PO DAILY [facility] Last Admin: 07/09/18 08:51 Dose: 200 mg Chlorpromazine (Thorazine) 50 mg PO Q8 PRN PRN Reason: Hiccups Cholecalciferol (Vitamin D) 1,000 intlu PO DAILY [facility] Last Admin: 07/09/18 08:53 Dose: 1,000 intlu Docusate Sodium (Colace) 100 mg PO BID [facility] Last Admin: 07/09/18 17:53 Dose: 100 mg Enoxaparin Sodium (Lovenox) 40 mg SC DAILY [facility]; Protocol Last Admin: 07/09/18 08:52 Dose: 40 mg Hydrochlorothiazide (Microzide) 12.5 mg PO DAILY [facility] Last Admin: 07/09/18 08:53 Dose: 12.5 mg Lactulose (Enulose) 20 gm PO DAILY PRN PRN Reason: Constipation Losartan Potassium (Cozaar) 100 mg PO DAILY [facility] Last Admin: 07/09/18 08:51 Dose: 100 mg Metoprolol Tartrate (Lopressor) 100 mg PO BID [facility] Last Admin: 07/09/18 17:54 Dose: 100 mg Ondansetron HCl (Zofran Tab) 4 mg PO Q6 PRN PRN Reason: Nausea/Vomiting Oxycodone HCl (Oxycontin Extended Release Tab) 10 mg PO Q12 [facility] Stop: 07/11/18 21:01 Last Admin: 07/09/18 08:55 Dose: 10 mg Oxycodone/Acetaminophen (Percocet 5/325 Mg Tab) 1 tab PO Q4 PRN PRN Reason: Pain, moderate (4-7) Stop: 07/11/18 13:30 Oxycodone/Acetaminophen (Percocet 5/325 Mg Tab) 2 tab PO Q4 PRN PRN Reason: Pain, severe (8-10) Stop: 07/11/18 13:30 Last Admin: 07/09/18 17:53 Dose: 2 tab Tamsulosin HCl (Flomax) 0.4 mg PO DAILY [facility] Last Admin: 07/09/18 08:52 Dose: 0.4 mg - Labs Labs: 07/08/18 05:50 07/08/18 05:50 PT 13.3 Seconds (9.8-13.1) H 07/08/18 05:50 INR 1.2 07/08/18 05:50
[2018-07-10] MEDS: oxyCODONE 10 mg ER Tab (oxyCONTIN) PO SCH (09:00)
[2018-07-10] MEDS: Cholecalciferol 1,000 INTLU TAB PO SCH (09:02)
[2018-07-10] MEDS: Enoxaparin 40 mg Syringe SC SCH (09:04)
[2018-07-10] MEDS: Oxycodone/Acetaminophen 5/325 mg Tab PO PRN (16:36)
--- NOTE | 2018-07-10 17:41 | CP.PCM.PN ---
Subjective - Date & Time of Evaluation Date of Evaluation: 07/10/18 Time of Evaluation: 17:39 - Subjective Subjective: Patient seen in the elevator going out for PT and in the room later in the day he is doing very well ambulating with the SC pain is well controlled I have d/c'd the oxycontin and the 2 percocet order He is for d/c tomorrow I have written for 30 percocet further pain medications should not be necessary. I discussed with Thiago Objective - Vital Signs/Intake and Output Vital Signs (last 24 hours): Temp Pulse Resp BP Pulse Ox 98.5 F 61 20 149/72 99 07/10/18 16:17 07/10/18 16:17 07/10/18 16:17 07/10/18 16:17 07/10/18 16:17 - Medications Medications: Current Medications Amlodipine Besylate (Norvasc) 2.5 mg PO DAILY [facility] Last Admin: 07/10/18 09:02 Dose: 2.5 mg Aspirin (Ecotrin) 81 mg PO DAILY [facility] Last Admin: 07/10/18 09:01 Dose: 81 mg Atorvastatin Calcium (Lipitor) 10 mg PO HS [facility] Last Admin: 07/09/18 21:59 Dose: 10 mg Bisacodyl (Dulcolax) 10 mg PO DAILY PRN PRN Reason: Constipation Celecoxib (Celebrex) 200 mg PO DAILY [facility] Last Admin: 07/10/18 09:01 Dose: 200 mg Chlorpromazine (Thorazine) 50 mg PO Q8 PRN PRN Reason: Hiccups Cholecalciferol (Vitamin D) 1,000 intlu PO DAILY [facility] Last Admin: 07/10/18 09:02 Dose: 1,000 intlu Docusate Sodium (Colace) 100 mg PO BID [facility] Last Admin: 07/10/18 16:36 Dose: 100 mg Enoxaparin Sodium (Lovenox) 40 mg SC DAILY [facility]; Protocol Last Admin: 07/10/18 09:04 Dose: 40 mg Hydrochlorothiazide (Microzide) 12.5 mg PO DAILY [facility] Last Admin: 07/10/18 09:02 Dose: 12.5 mg Lactulose (Enulose) 20 gm PO DAILY PRN PRN Reason: Constipation Losartan Potassium (Cozaar) 100 mg PO DAILY [facility] Last Admin: 07/10/18 09:01 Dose: 100 mg Metoprolol Tartrate (Lopressor) 100 mg PO BID [facility] Last Admin: 07/10/18 16:36 Dose: 100 mg Ondansetron HCl (Zofran Tab) 4 mg PO Q6 PRN PRN Reason: Nausea/Vomiting Oxycodone/Acetaminophen (Percocet 5/325 Mg Tab) 1 tab PO Q4 PRN PRN Reason: Pain, moderate (4-7) Stop: 07/11/18 13:30 Tamsulosin HCl (Flomax) 0.4 mg PO DAILY [facility] Last Admin: 07/10/18 09:01 Dose: 0.4 mg - Labs Labs: 07/08/18 05:50 07/08/18 05:50 PT 13.3 Seconds (9.8-13.1) H 07/08/18 05:50 INR 1.2 07/08/18 05:50
[2018-07-11 08:12] VITALS: BP 145/79; PULSE 81; TEMP 98.6; O2SAT 96
[2018-07-11] MEDS: Enoxaparin 40 mg Syringe SC SCH (08:50)
[2018-07-11] MEDS: Cholecalciferol 1,000 INTLU TAB PO SCH (08:52)
--- NOTE | 2018-07-11 09:39 | CP.PCM.DIS ---
Provider - Provider Date of Admission: 07/05/18 17:48 Attending physician: Kunal Cruz MD Consults: 07/05/18 18:56 Orthopedic Consult Routine Comment: Consulting Provider: Arslan Shipley Consulting Physician: Arslan Shipley Reason for Consult: f/u consult; left THR 07/05/18 18:59 Case Management Referral Routine Comment: Physician Instructions: Reason For Exam: Reason for Referral: Discharge Planning 07/06/18 09:29 Physiatry Consult Routine Comment: Consulting Provider: Kunal Cruz Consulting Physician: Kunal Cruz Reason for Consult: [facility] Course - Lab Results Lab Results: Most Recent Lab Values WBC 7.7 K/uL (4.8-10.8) 07/08/18 05:50 RBC 3.17 Mil/uL (4.40-5.90) L 07/08/18 05:50 Hgb 10.4 g/dL (12.0-18.0) L 07/08/18 05:50 Hct 31.5 % (35.0-51.0) L 07/08/18 05:50 MCV 99.4 fl (80.0-94.0) H D 07/08/18 05:50 MCH 33.0 pg (27.0-31.0) H 07/08/18 05:50 MCHC 33.2 g/dL (33.0-37.0) 07/08/18 05:50 RDW 12.7 % (11.5-14.5) 07/08/18 05:50 Plt Count 284 K/uL (130-400) 07/08/18 05:50 PT 13.3 Seconds (9.8-13.1) H 07/08/18 05:50 INR 1.2 07/08/18 05:50 Sodium 140 mmol/l (132-148) 07/08/18 05:50 Potassium 3.5 MMOL/L (3.6-5.0) L 07/08/18 05:50 Chloride 95 mmol/L (98-107) L 07/08/18 05:50 Carbon Dioxide 33 mmol/L (22-30) H 07/08/18 05:50 Anion Gap 16 (10-20) 07/08/18 05:50 BUN 25 mg/dl (9-20) H 07/08/18 05:50 Creatinine 0.9 mg/dl (0.8-1.5) 07/08/18 05:50 Est GFR ( Amer) > 60 07/08/18 05:50 Est GFR (Non-Af Amer) > 60 07/08/18 05:50 Random Glucose 109 mg/dL (75-110) 07/08/18 05:50 Calcium 9.5 mg/dL (8.4-10.2) 07/08/18 05:50 Total Bilirubin 0.6 mg/dl (0.2-1.3) 07/08/18 05:50 AST 42 U/L (17-59) 07/08/18 05:50 ALT 38 U/L (21-72) 07/08/18 05:50 Alkaline Phosphatase 48 U/L (38-126) 07/08/18 05:50 Total Protein 7.5 G/DL (6.3-8.2) 07/08/18 05:50 Albumin 3.9 g/dL (3.5-5.0) 07/08/18 05:50 Globulin 3.6 gm/dL (2.2-3.9) 07/08/18 05:50 Albumin/Globulin Ratio 1.1 (1.0-2.1) 07/08/18 05:50 Discharge Exam - Head Exam Head Exam: NORMAL INSPECTION Discharge Plan - Discharge Medications Prescriptions: Celecoxib [celeBREX] 200 mg PO DAILY #30 cap Cholecalciferol [Vitamin D 1000 IU] 1,000 intlu PO DAILY #30 tab Metoprolol Tartrate [Lopressor] 100 mg PO BID #60 tab - Follow Up Plan Condition: GOOD Disposition: HOME/ ROUTINE
[2018-07-11 10:30] LABS: BLOOD UREA NITROGEN 13 mg/dl (9-20); CALCIUM 9.6 mg/dL (8.4-10.2); GFR NON-AFRICAN AMERICAN > 60
== END 2018-07-11 14:06 | disposition home or self-care (01) | DRG 561 ==
LOC: H.TCU 17:48
PROVIDERS: ADMIT Family Medicine; ATTEND Family Medicine
PROC: F07Z9FZ Gait Training/Functional Ambulation Treatment using Assistive, Adaptive, Supportive or Protective Equipment (ICD-10-PCS; principal; 2018-07-05)
PROC: F07L6GZ Therapeutic Exercise Treatment of Musculoskeletal System - Lower Back / Lower Extremity using Aerobic Endurance and Conditioning Equipment (ICD-10-PCS; 2018-07-05)
PROC: F08Z1FZ Dressing Techniques Treatment using Assistive, Adaptive, Supportive or Protective Equipment (ICD-10-PCS; 2018-07-05)
DX: Z47.1 Aftercare following joint replacement surgery (principal); E78.00 Pure hypercholesterolemia, unspecified; E78.5 Hyperlipidemia, unspecified; I25.10 Atherosclerotic heart disease of native coronary artery without angina pectoris; Z95.5 Presence of coronary angioplasty implant and graft; I10 Essential (primary) hypertension; K59.00 Constipation, unspecified; Z96.642 Presence of left artificial hip joint

== ENCOUNTER 2018-07-16 17:26 | Emergency (ER) | payer MEDICARE ==
[2018-07-16 17:26] VITALS: BMI 27.9
[2018-07-16 17:40] VITALS: O2SAT 98
--- NOTE | 2018-07-16 19:07 | ED PDOC ---
Lower Extremity Pain/Injury Time Seen by Provider: 07/16/18 17:50 Chief Complaint (Nursing): Lower Extremity Problem/Injury History Per: Patient History/Exam Limitations: no limitations Onset/Duration Of Symptoms: Days Current Symptoms Are (Timing): Still Present Additional Complaint(s): Pt. is 10 d. s/p left THR with Dr. Shipley. Pt. reports some mild swelling to his LLE since being discharged over past couple days but swelling usually improved with elevation. Pt. was scheduled for his first PT session today and upon arrival, LLE was noted to be swollen and pt. was sent to ED. Pt. was on sq lovenox during his admission post op day 0--->5 and now is just taking asa. Pt. denies any cp, sob. - Risk Factors DVT Risk Factors: Pos: Decreased Mobility, Major Surgery Past Medical History Vital Signs: Last Vital Signs Temp 98.1 F 07/16/18 17:40 Pulse 58 L 07/16/18 17:40 Resp 16 07/16/18 17:40 BP 178/88 H 07/16/18 17:40 Pulse Ox 98 07/16/18 17:40 - Medical History PMH: Asthma (as a child), Benign Prostatic Hyperplasia, CAD, Fractures (BILAT ANKLES), HTN, Hypercholesterolemia, Rheumatoid Arthritis Denies: Chronic Kidney Disease Comment Only: Arthritis (wrist) - Surgical History Surgical History: Coronary Stent (2010) - Family History Family History: States: Diabetes, Hypertension - Home Medications Home Medications: Ambulatory Orders Medication Instructions Recorded Atorvastatin [Lipitor] 10 mg PO QPM 11/01/14 Aspirin [Aspirin EC] 325 mg PO BID 05/04/15 Nebivolol [Bystolic] 20 mg PO DAILY 11/18/15 Tamsulosin [Flomax] 0.4 mg PO DAILY 05/07/17 Losartan/Hydrochlorothiazide 12.5 - 100 mg PO DAILY 04/16/18 [Losartan-Hctz 100-12.5 mg Tab] amLODIPine [Norvasc] 2.5 mg PO DAILY 04/16/18 Docusate [Colace] 100 mg PO BID cap 07/05/18 oxyCODONE [oxyCONTIN Extended 10 mg PO Q12 #10 tab 07/05/18 Release Tab] oxyCODONE/Acetaminophen [Percocet 1 tab PO Q4 PRN #10 tab 07/05/18 5/325 mg Tab] oxyCODONE/Acetaminophen [Percocet 2 tab PO Q4 PRN #10 tab 07/05/18 5/325 mg Tab] Celecoxib [celeBREX] 200 mg PO DAILY #30 cap 07/11/18 Cholecalciferol [Vitamin D 1000 IU] 1,000 intlu PO DAILY #30 tab 07/11/18 Metoprolol Tartrate [Lopressor] 100 mg PO BID #60 tab 07/11/18 - Allergies Allergies/Adverse Reactions: Allergies Allergy/AdvReac Type Severity Reaction Status Date / Time No Known Allergies Allergy Verified 07/16/18 17:37 Review of Systems Constitutional: Negative for: Fever, Chills, Sweats Cardiovascular: Negative for: Chest Pain, Palpitations, Light Headedness Respiratory: Negative for: Cough, Shortness of Breath, Pleuritic Pain Neurological: Negative for: Weakness, Numbness Physical Exam - Reviewed Vital Signs Reviewed: Yes - Physical Exam Appears: Positive for: Well, Non-toxic Head Exam: Positive for: ATRAUMATIC Skin: Positive for: Normal Color, Warm, Dry Eye Exam: Positive for: Normal appearance ENT: Positive for: Normal ENT Inspection Neck: Positive for: Normal Cardiovascular/Chest: Positive for: Regular Rate, Rhythm. Negative for: Tachycardia Respiratory: Positive for: Normal Breath Sounds Pulses-Dorsalis Pedis (L): 3+/4+ Pulses-Dorsalis Pedis (R): 3+/4+ Pulses-Post. Tibialis (L): 3+/4+ Pulses-Post. Tibialis (R): 3+/4+ Extremity: Positive for: Normal ROM, Swelling (LLE: Mild swelling from dorsal foot to just below knee. (-) erythema, (-) tenderness. ). Negative for: Tenderness - ECG O2 Sat by Pulse Oximetry: 98 Medical Decision Making Medical Decision Making: Venous duplex LLE ordered. Name: THIERNO PHILLIPS Exam Date: Jul 16, 2018 6:37:12 PM EST Modality Type: SD\US Description: US - LOWER EXTREMITY VENOUS Gender: M Laterality: Left : 59 Referring Physician: gillian jarquin EXAM: US for Deep Venous Thrombosis, left Lower Extremity. CLINICAL HISTORY: Swelling s/p hip replacement 07/03/18. TECHNIQUE: Real-time ultrasound scan of the veins of the left lower extremity with color Doppler flow, spectral waveform analysis and compression. COMPARISON: None provided. FINDINGS: DEEP VEINS: The common femoral, superficial femoral, and popliteal veins are echolucent and compressible. There is normal color Doppler flow throughout. The visualized calf veins appear patent. SUPERFICIAL VEINS: The visualized greater saphenous vein is patent. SOFT TISSUES: No popliteal fossa cyst or other abnormalities. IMPRESSION: No deep venous thrombosis evident on left lower extremity examination. Electronically signed on Jul 16, 2018 7:11:38 PM EST by: Clemente Powell M.D., MARY Certified By [facility] [employer] [facility] Fellowship Trained MRI and CT Specialist Pt. well appearing, no evidence of cellulitis, no dvt. Pt. ambulating with cane. Disposition - Clinical Impression Clinical Impression: Edema - Patient ED Disposition Is Patient to be Admitted: No Counseled Patient/Family Regarding: Studies Performed, Diagnosis, Need For Followup - Disposition Referrals: Arslan Shipley MD [Staff Provider] - Disposition: Routine/Home Disposition Time: 19:34 Condition: STABLE Instructions: Dependent Edema (DC) Forms: Voices ([employer])
[2018-07-16 19:54] VITALS: BP 146/78; PULSE 61; RESP 18; TEMP 99.1
--- NOTE | 2018-07-17 11:09 | US ---
Date of service: 07/16/2018 HISTORY: LLE swelling s/p surgery. PRIORS: None. FINDINGS: 2-D, color and duplex Doppler analysis of the lower extremity venous circulation using routine protocol from the femoral veins through the popliteal veins. Venous compressibility: Normal. Flow and augmentation patterns: Normal. Visualized veins upper third of calf: Normal. Levy cyst: None. IMPRESSION: No sonographic or Doppler evidence for DVT in left lower extremity. Concordant findings (preliminary report) provided by [facility].
== END 2018-07-16 20:00 | disposition home or self-care (01) ==
LOC: H.ER 17:26
DX: R60.9 Edema, unspecified (principal); J45.909 Unspecified asthma, uncomplicated; Z95.5 Presence of coronary angioplasty implant and graft